=== PATIENT | female | born 1945 | race Caucasian/White ===

== ENCOUNTER 2018-01-29 16:37 | Emergency (ER) | payer MEDICARE, MEDICAID ==
[~2018-01-29] VITALS: Ht 160 cm; Wt 74.4 kg
[2018-01-29] MEDS ORDERED: Morphine Sulfate 4mg/ml Inj IVP ONE (17:15)
--- NOTE | 2018-01-29 17:18 | Emergency Room Report ---
History of Present Illness General Chief Complaint: Pain Source: Patient Present Illness HPI 72 yo female patient presents to ER for kidney stones. Reports CT done five days ago showing kidney stones; does not have copy of report; reports 2mm stone found at that time. Patient complains of worsening of pain since that time. Reports taking medication at home for pain without relief of symptoms. Complains of flank pain and nausea, denies vomiting. Reports hx of kidney stones twice before int he past. Reports they were "broken up" in hospital. Denies dysuria, hematuria. Denies fever, chest pain, SOB. Allergies: Coded Allergies: No Known Allergies (Unverified , 01/29/18) Patient History Past Medical History: see triage record Reviewed Nursing Documentation: PMH: Agreed; PSxH: Agreed Nursing Documentation-PMH Past Medical History: No History, Except For Hx Hypertension: Yes Review of Systems All Other Systems: negative except mentioned in HPI Physical Exam Vital Signs Date Time Temp Pulse Resp B/P (MAP) Pulse Ox O2 Delivery O2 Flow Rate FiO2 01/29/18 16:41 98.0 65 18 170/65 97 Room Air 98.1 Sp02 EP Interpretation: reviewed, normal General Appearance: well appearing, alert, GCS 15, non-toxic, mild distress Head: normocephalic, atraumatic Eyes: bilateral eye normal inspection, bilateral eye PERRL ENT: hearing grossly normal, normal pharynx, no angioedema, normal voice, uvula midline, moist mucus membranes Neck: full range of motion Respiratory: lungs clear, normal breath sounds, no rhonchi, no respiratory distress, no accessory muscle use, no wheezing, speaking full sentences Cardiovascular #1: regular rate, rhythm, no edema Gastrointestinal: soft, no mass, non-distended, no guarding, no rebound, tenderness Genitourinary: no CVA tenderness Musculoskeletal: back normal, digits/nails normal, gait/station normal, normal range of motion, non-tender Neurologic: alert, oriented x3, responsive, motor strength/tone normal, sensory intact Psychiatric: mood/affect normal Skin: no rash Lymphatic: no adenopathy Medical Decision Making PA Attestation Dr. Torres is my supervising physician with whom patient management has been discussed with. Diagnostic Impression: Primary Impression: Nephrolithiasis Additional Impressions: Acute kidney injury Urinary tract infection ER Course Pt. presents to the ED c/o kidney stones. Ddx considered but are not limited to UTI, cholelithiasis, cholecystitis, pancreatitis, appendicitis, diverticulitis. Begin abdominal pain workup. Provided patient with pain medication. Vital signs: are WNL, pt. is afebrile CURES reports shows no prescriptions filled. ORDERS: CBC, CMP, Lipase, UA, Urine , CT abdomen pelvis, Zofran, and pain medication. ER COURSE: Labs unremarkable, no elevation in WBC, LFTs, or lipase. BUN and creatinine elevated, consistent with acute kidney injury caused by nephrolithiasis. Urine negative UA equivocal for UTI. Patient reports currently being treated for UTI by primary care provider, has 2 days left of ciprofloxacin. Informed patient to continue taking medication provided by PCP, will provide single dose of Cipro in ER. Will not discharge home with abx. Patient reports relief of pain symptoms with medication. 0610PM patient resting comfortably, sleeping, in no acute distress. CT results shows 4mm calculus in kidney. Informed patient stone is non- obstructive and she is likely to pass it on her own, more likely to cause obstruction if >5mm. Perinephric stranding consistent with UTI. No appendicitis, diverticulitis, or SBO. Discuss results with patient. Copy of results provided to patient IV fluids provided to patient. Instructed patient to drink fluids to aid in passage of kidney stones. Consult with Dr. Torres, reports agreement with diagnosis, treatment, and plan. Patient is stable to discharge home. Patient reports she is ready for discharge home. Will be driven home by . Requesting Eighty Four pain medication. Will provide 5 pills to patient until able to followup with primary care provider and discuss referral to specialist. Dr. Torres agrees. DISCHARGE: Rx provided for Eighty Four. Take Tylenol for pain following completion of medication. Followup with primary care provider for further treatment for pain symptoms. Declines Tylenol rx. At this time pt. is stable for d/c to home. Patient resting comfortably, in no acute distress, nontoxic appearing, talking without difficulty, smiling and laughing. Rx provided to patient. Patient to take medications as instructed Will provide with patient care instructions and any necessary prescriptions. Care plan and follow-up instructions provided. Patient instructed to follow-up with primary care provider in 3 - 5 days. Patient questions asked and answered. Patient reports understanding and agreement to treatment plan. ER precautions given. Patient instructed to return to ER immediately for any new or worsening of symptoms including but not limited to increasing SOB, persistent fever, worsening of pain symptoms, intractable vomiting, blood in stool, urine, and/or emesis. Labs Test 01/29/18 17:20 White Blood Count 10.4 K/UL (4.8-10.8) Red Blood Count 4.61 M/UL (4.20-5.40) Hemoglobin 14.7 G/DL (12.0-16.0) Hematocrit 42.0 % (37.0-47.0) Mean Corpuscular Volume 91 FL (80-99) Mean Corpuscular Hemoglobin 31.8 PG (27.0-31.0) Mean Corpuscular Hemoglobin Concent 34.9 G/DL (32.0-36.0) Red Cell Distribution Width 12.2 % (11.6-14.8) Platelet Count 115 K/UL (150-450) Mean Platelet Volume 9.5 FL (6.5-10.1) Neutrophils (%) (Auto) % (45.0-75.0) Lymphocytes (%) (Auto) % (20.0-45.0) Monocytes (%) (Auto) % (1.0-10.0) Eosinophils (%) (Auto) % (0.0-3.0) Basophils (%) (Auto) % (0.0-2.0) Urine Color Pale yellow Urine Appearance Slightly cloudy Urine pH 7 (4.5-8.0) Urine Specific [place] 1.010 (1.005-1.035) Urine Protein 2+ (NEGATIVE) Urine Glucose (UA) Negative (NEGATIVE) Urine Ketones 1+ (NEGATIVE) Urine Occult Blood 5+ (NEGATIVE) Urine Nitrite Negative (NEGATIVE) Urine Bilirubin Negative (NEGATIVE) Urine Urobilinogen 1 MG/DL (0.0-1.0) Urine Leukocyte Esterase 2+ (NEGATIVE) Urine RBC 20-30 /HPF (0 - 2) Urine WBC 2-4 /HPF (0 - 2) Urine Squamous Epithelial Cells Few /LPF (NONE/OCC) Urine Bacteria Few /HPF (NONE) Urine HCG, Qualitative Negative (NEGATIVE) Sodium Level 137 MMOL/L (136-145) Potassium Level 4.5 MMOL/L (3.5-5.1) Chloride Level 103 MMOL/L (98-107) Carbon Dioxide Level 26 MMOL/L (21-32) Anion Gap 8 mmol/L (5-15) Blood Urea Nitrogen 40 mg/dL (7-18) Creatinine 2.0 MG/DL (0.55-1.30) Estimat Glomerular Filtration Rate 24.6 mL/min (>60) Glucose Level 121 MG/DL (74-106) Calcium Level 9.6 MG/DL (8.5-10.1) Total Bilirubin 0.5 MG/DL (0.2-1.0) Aspartate Amino Transf (AST/SGOT) 27 U/L (15-37) Alanine Aminotransferase (ALT/SGPT) 34 U/L (12-78) Alkaline Phosphatase 97 U/L (46-116) Total Protein 6.7 G/DL (6.4-8.2) Albumin 3.8 G/DL (3.4-5.0) Globulin 2.9 g/dL Albumin/Globulin Ratio 1.3 (1.0-2.7) Lipase 161 U/L (73-393) CT/MRI/US Diagnostic Results CT/MRI/US Diagnostic Results : Imaging Test Ordered: CT Abdomen pelvis Impression Left proximal ureter 4 mm calculus with associated hydronephrosis. Left perinephric stranding, cannot exclude infection/inflammation. Right nephrolithiasis. Bilateral adrenal thickening, followup per final report. No appendicitis, SBO, or diverticulitis. Moderate colonic stool. Last Vital Signs Date Time Temp Pulse Resp B/P (MAP) Pulse Ox O2 Delivery O2 Flow Rate FiO2 01/29/18 16:41 98.0 65 18 170/65 97 Room Air 98.1 Disposition: HOME, SELF-CARE Condition: Stable Scripts Hydrocodone Bit/Acetaminophen 5-325* (NORCO 5-325*) 1 Each Tablet 1 TAB ORAL Q6H PRN for For Pain, #5 TAB 0 Refills Prov: Kirk Corado 01/29/18 Patient Instructions: Acute Kidney Injury, Kidney Stones, [id number], Urinary Tract Infection, [id number] Additional Instructions: Followup with primary care provider in 3 -5 days. Continue to take Cipro for UTI. Take medications as directed. Patient questions asked and answered. ER precautions given, patient instructed to return to ER immediately for any new or worsening of symptoms. Kirk Corado Jan 29, 2018 17:17
[2018-01-29] MEDS ORDERED: Ketorolac 30mg Inj IV ONE (17:30)
[2018-01-29 17:44] LABS: BILIRUBIN, URINE NEGATIVE (NEGATIVE); COLOR,URINE PALE YELLOW; GLUCOSE, URINE (UA) NEGATIVE (NEGATIVE); KETONES,URINE 1+ (NEGATIVE); LEUKOCYTE ESTERASE ,URINE 2+ (NEGATIVE); NITRITE,URINE NEGATIVE (NEGATIVE); PH,URINE 7 (4.5-8.0); PROTEIN,URINE 2+ (NEGATIVE); UROBILINOGEN,URINE 1 MG/DL (0.0-1.0)
[2018-01-29 17:51] LABS: APPEARANCE,URINE SLIGHTLY CLOUDY
[2018-01-29 17:56] LABS: HEMOGLOBIN 14.7 G/DL (12.0-16.0); MEAN CORPUSCULAR VOLUME 91 FL (80-99); PLATELET COUNT 115 K/UL (150-450); RED BLOOD COUNT 4.61 M/UL (4.20-5.40); RED CELL DISTRIBUTION WIDTH 12.2 % (11.6-14.8); WHITE BLOOD COUNT 10.4 K/UL (4.8-10.8)
[2018-01-29 18:06] LABS: ANION GAP 8 mmol/L (5-15); BLOOD UREA NITROGEN 40 mg/dL (7-18); CALCIUM 9.6 MG/DL (8.5-10.1); CARBON DIOXIDE 26 MMOL/L (21-32); CHLORIDE 103 MMOL/L (98-107); POTASSIUM 4.5 MMOL/L (3.5-5.1); SODIUM 137 MMOL/L (136-145)
[2018-01-29 18:11] LABS: ALANINE AMINOTRANSFERASE 34 U/L (12-78); ALBUMIN 3.8 G/DL (3.4-5.0); ALBUMIN/GLOBULIN RATIO 1.3 (1.0-2.7); ALKALINE PHOSPHATASE 97 U/L (46-116); ASPARTATE AMINO TRANSFERASE 27 U/L (15-37); BILIRUBIN,TOTAL 0.5 MG/DL (0.2-1.0)
[2018-01-29] MEDS ORDERED: Ciprofloxacin 500mg tab ORAL ONE (18:45)
[2018-01-29 18:52] VITALS: BP 143/60
[2018-01-29] MEDS ORDERED: NORCO 5-325 TA1 EACH ORAL (19:54)
[2018-01-29 19:58] VITALS: BP 143/60
--- NOTE | 2018-01-30 08:51 | Diagnostic Imaging Report ---
Indication: Abdominal pain Technique: Spiral acquisitions obtained through the abdomen and pelvis. No oral contrast utilized, per emergency room physician request No IV contrast utilized, per referring physician request.. Multiplanar reconstructions were generated. Total dose length product 802.63 mGycm. CTDIvol(s) 16.38 mGy. Dose reduction achieved using automated exposure control Comparison: None Findings: There is a 6 x 4 mm calculus in the proximal left ureter just beyond the ureteropelvic junction. There is results are mild to moderate left hydronephrosis and considerable perinephric fat stranding, as well as enlargement of the left kidney. No intrarenal calculi are demonstrated. Lack of IV contrast limits assessment of the renal parenchyma. There is a 1.5 cm cyst in the upper pole of the left kidney. The right kidney is markedly atrophic. It demonstrates multiple cysts. It also demonstrates a calculus in the lower pole collecting system which is nonobstructive. No right hydronephrosis or right ureteral calculi demonstrated. Lack of IV contrast limits assessment of the other solid organs. The gallbladder is surgically absent. The bile ducts are unremarkable. The liver, pancreas, spleen are unremarkable. The adrenals are bulky bilaterally. No retroperitoneal or mesenteric mass or adenopathy. A densely calcified 3 cm mass is seen deep in the posterior pelvis. No other pelvic mass or adenopathy. Uterus contains a few calcifications. The appendix is normal. No evidence of diverticulosis or diverticulitis. No small bowel distention. No free or loculated intraperitoneal air or fluid is evident. Distal esophagus, stomach, duodenum are unremarkable. There are extensive degenerative changes of the thoracic and lumbar spine. The included lung bases are clear. Impression: Positive for obstructive 6 x 4 mm proximal left ureteral calculus. This results in [id number] left hydronephrosis and considerable perinephric fat stranding Right nephrolithiasis, nonobstructive. Atrophic right kidney with cysts. Bilateral adrenal hypertrophy 3 cm calcification in the posterior pelvis, probably postinflammatory Degenerative spondylosis This agrees with the preliminary interpretation provided overnight by [facility]. The CT scanner at [facility] is accredited by the [employer] and the scans are performed using protocols designed to limit radiation exposure to as low as reasonably achievable to attain images of sufficient resolution adequate for diagnostic evaluation.
== END 2018-01-29 20:06 | disposition home or self-care (01) ==
LOC: EMR 17:25
DX: N13.2 Hydronephrosis with renal and ureteral calculous obstruction (principal); N17.9 Acute kidney failure, unspecified; N39.0 Urinary tract infection, site not specified; I10 Essential (primary) hypertension; E27.8 Other specified disorders of adrenal gland
CPT/HCPCS: 36415; 74176; 80053; 81003; 81025; 83690; 85025; 96374; 96375; 99284; J1885; J2270; J2405

== ENCOUNTER → 2021-01-20 | Day surgery (SDC) | payer MEDICARE, OTHER ==
[~2021-01-20] VITALS: Ht 162.6 cm; Wt 70.8 kg
[2021-01-20] VITALS (10 sets, daily range): BP systolic 121–145; BP diastolic 55–78
[~2021-01-20] MED LIST: ASPIRIN81 MG ORAL; Bupivacaine 0.5% Inj 30 ml vial INJ ONE; FOLIC ACID1 MG ORAL; HYZAAR 100-12.1 EACH ORAL; LR 1000ml 1,000 ML IVLG SCH; Lidocaine 1% MPF 10mg/ml 5ml ONE; NORCO 5-325 TA1 EACH ORAL; NS Irrig 1000ml IRRIG ONE; TYLENOL EXTRA500 MG ORAL; VITAMIN D325 MC1 PO; fentaNYL 100 mcg/2 mL IV ONE; fentaNYL 100 mcg/2 mL IV PRN
--- NOTE | 2021-01-20 07:25 | Anethesia Preoperative Eval ---
Anesthesia Pre-op PMH/ROS General Date of Evaluation: Jan 20, 2021 Time of Evaluation: 07:21 Anesthesiologist: Roel ASA Score: ASA 2 Mallampati Score Class I : Soft palate, uvula, fauces, pillars visible Class II: Soft palate, uvula, fauces visible Class III: Soft palate, base of uvula visible Class IV: Only hard plate visible Mallampati Classification: Class II Surgeon: George Diagnosis: R foot hamertoe Surgical Procedure: Hamertoe correction Anesthesia History: none Family History: no anesthesia problems Allergies: Coded Allergies: No Known Allergies (Unverified , 01/20/21) Medications: see eMAR Patient NPO?: Yes Past Medical History Cardiovascular: Reports: HTN; Denies: CAD, RI, valve dz, arrhythmia, other Pulmonary: Denies: asthma, COPD, CARLOS, other Gastrointestinal/Genitourinary: Reports: GERD; Denies: CRI, ESRD, other Neurologic/Psychiatric: Reports: depression/anxiety; Denies: dementia, CVA, TIA, other Endocrine: Reports: hypothyroidism; Denies: DM, steroids, other HEENT: Reports: cataract (L) - s/p x; Denies: cataract (R), glaucoma, [place] (L), [place] (R), other Hematology/Immune: Reports: anemia - mild; Denies: DVT, bleeding disorder, other Musculoskeletal/Integumentary: Reports: OA; Denies: RA, DJD, DDD, edema, other PMH Narrative: above PSxH Narrative: se H&P Anesthesia Pre-op Phys. Exam Physician Exam Last Vital Signs Date Time Temp Pulse Resp B/P (MAP) Pulse Ox O2 Delivery O2 Flow Rate FiO2 01/20/21 06:32 Room Air 01/20/21 06:31 97.0 59 18 145/65 100 Constitutional: NAD Neurologic: CN 2-12 intact Cardiovascular: RRR, no M/R/G Respiratory: CTA Gastrointestinal: S/NT/ND Airway Exam Mallampati Score: Class II MO: limited Neck: stiff ROM: limited Teeth: missing Dentures: no upper, no lower Anesthesia Pre-op A/P Labs see chart Studies Pre-op Studies: EKG - S Risk Assessment & Plan Assessment: ASA 2 Plan: MAC Status Change Before Surgery: No Pre-Antibiotics Drug: Ancef 1gr Given Within 1 Hr of Incision: Yes Time Given: 08:15 Doc Sevilla MD Jan 20, 2021 07:24
--- NOTE | 2021-01-20 07:42 | Pre-Procedure Note/Attestation ---
Pre-Procedure Note/Attestation Complete Prior to Procedure Planned Procedure: right Procedure Narrative: Hammertoe correction fourth right digit Indications for Procedure Pre-Operative Diagnosis: Hammertoe deformity fourth right digit Attestation I attest that I discussed the nature of the procedure; its benefits; risks and complications; and alternatives (and the risks and benefits of such alternatives), prior to the procedure, with the patient (or the patient's legal internet sales representative). I attest that, if there was a reasonable possibility of needing a blood transfusion, the patient (or the patient's legal internet sales representative) was given the [facility] standardized written summary, pursuant to the Live Richard Blood Safety Act ([place] Health and Safety Code # 1645, as amended). I attest that I re-evaluated the patient just prior to the surgery and that there has been no change in the patient's H&P, except as documented below: Sixto Vazquez DPM Jan 20, 2021 07:42
--- NOTE | 2021-01-20 08:18 | Brief Operative Note ---
Immediate Post Operative Note Operative Note Pre-op Diagnosis: Hammertoe deformity fourth right digit Procedure: Hammertoe correction fourth right digit Post-op Diagnosis: same as pre-op Surgeon: George Anesthesiologist: Roel Anesthesia: MAC Specimen: yes Complications: none Condition: stable Fluids: 500 Estimated Blood Loss: none Drains: none Implant(s) used?: No Sixto Vazquez DPM Jan 20, 2021 08:18
--- NOTE | 2021-01-20 08:26 | Immediate Post-Op Evaluation ---
Immediate Post-Op Evalulation Immediate Post-Op Evalulation Procedure: R 4-th hammertoe correction Date of Evaluation: Jan 20, 2021 Time of Evaluation: 08:25 IV Fluids: 500 Blood Products: none Estimated Blood Loss: min Urinary Output: none Blood Pressure Systolic: 142 Blood Pressure Diastolic: 58 Pulse Rate: 54 Respiratory Rate: 18 O2 Sat by Pulse Oximetry: 99 Temperature (Fahrenheit): 97.6 Pain Score (1-10): 1 Nausea: No Vomiting: No Complications none Patient Status: awake, patent, none Hydration Status: adequate Doc Sevilla MD Jan 20, 2021 08:26
--- NOTE | 2021-01-20 09:22 | 48 Hour Post Anesthesia Eval ---
Post Anesthesia Evaluation Procedure: R 4-th hammertoe correction Date of Evaluation: Jan 20, 2021 Time of Evaluation: 09:20 Blood Pressure Systolic: 136 0: 78 Pulse Rate: 52 Respiratory Rate: 20 Temperature (Fahrenheit): 97.6 O2 Sat by Pulse Oximetry: 98 Airway: patent Nausea: No Vomiting: No Pain Intensity: 1 Hydration Status: adequate Cardiopulmonary Status: stable Mental Status/LOC: patient returned to baseline Follow-up Care/Observations: n/a Post-Anesthesia Complications: none Follow-up care needed: ready to discharge Doc Sevilla MD Jan 20, 2021 09:21
--- NOTE | 2021-01-20 12:29 | Operative Note - Dictated ---
DATE OF OPERATION: 01/20/2021 SURGEON: Sixto Vazquez DPM. ANESTHESIOLOGIST: Doc Sevilla MD. ANESTHESIA: Local standby. PREOPERATIVE DIAGNOSIS: Hammertoe deformity, fourth right digit. POSTOPERATIVE DIAGNOSIS: Hammertoe deformity, fourth right digit. PROCEDURE PERFORMED: Arthroplasty, fourth right proximal interphalangeal joint. DESCRIPTION OF THE OPERATION: The patient was brought to the operating room and was placed on the operating room table in the supine position. IV sedation was administered by the anesthesiologist, local anesthesia consisting of 0.5% Marcaine plain total of 7 mL was administered to the fourth right digit. An ankle tourniquet was applied to the right lower extremity. The foot was prepped and draped in the usual sterile manner. An Esmarch bandage was utilized to exsanguinate the blood and the right ankle tourniquet was inflated to 250 mmHg. Attention was then directed to the fourth right digit where an approximately 3 to 4 cm skin incision was centered over the proximal interphalangeal joint. The incision was deepened utilizing sharp and blunt dissection with care being taken to cauterize and ligate all bleeders. At the level of the joint, a transverse tenotomy was performed. The extensor tendon was reflected proximally and the head of the proximal phalanx was exposed. The collateral ligaments were severed. Utilizing a sagittal saw, the head of the proximal phalanx was resected in toto. The remaining bone was rasped smooth. The wound was copiously flushed utilizing sterile saline. The extensor tendon was then reapproximated utilizing 4-0 Vicryl in a simple interrupted type stitch. The skin was then reapproximated utilizing 4-0 nylon in a simple interrupted type stitch. The wound was dressed utilizing an Adaptic 4 x 4 gauze and 3 inch Kandis. The right ankle tourniquet was deflated and vascular supply was noted to all digits right foot. Sixto Vazquez D.P.M. DR: GAURAV JOB#: [id number] CC:
--- NOTE | 2021-01-20 12:44 | History and Physical Report ---
DATE OF ADMISSION: 01/20/2021 PODIATRIC HISTORY AND PHYSICAL HISTORY OF PRESENT ILLNESS: This is a 75-year-old white female that is admitted today for an outpatient correction of her fourth right hammertoe deformity. The patient has been under my care for the past 3 years. She had developed a painful corn over the dorsal aspect of her fourth right digit and numerous debridement of the skin lesion along with shoe-gear modification and padding failed to alleviate her symptoms. The patient was consulted on surgical correction. PAST MEDICAL HISTORY: Remarkable for hypertension, kidney stones, osteoporosis, DJD, GERD, and back pain. She has a history of spinal stenosis post laminectomy. MEDICATIONS: Norvasc, Singulair, Celebrex, aspirin, Crestor, Lyrica, Lidoderm, Hyzaar, Tradjenta, and rosuvastatin. ALLERGIES: No known drug allergies. PODIATRIC PHYSICAL EXAMINATION: VASCULAR STATUS: The dorsalis pedis and posterior tibial arteries are equally palpable measuring 2/4 bilaterally. Capillary filling time is less than 4 seconds to all digits bilaterally. Homans sign is negative. Mild varicosities are noted bilateral lower extremity. NEUROLOGICAL: Reveals intact reflexes Achilles and patellar measuring 2/4 bilaterally. Sensation, proprioception and vibration are all intact bilateral lower extremity. Babinski is negative. Clonus is absent. MUSCULOSKELETAL: Reveals nonreducible hammertoe deformities of digits 2 through 5 bilaterally. Mild bunion deformities are noted bilaterally. Decreased range of motion of the forefoot and midfoot is noted bilaterally. No crepitation is present. DERMATOLOGICAL: Reveals a keratoma overlying the dorsal aspect of the fourth right proximal interphalangeal joint. No other skin lesions, scars or ulcerations are present bilaterally. All nails are present and healthy bilaterally. ASSESSMENT: Hammertoe deformity, fourth right digit with painful keratoma. PLAN: The patient is admitted today for an outpatient correction of her fourth right hammertoe deformity. Risks, complications and alternatives were discussed with the patient. Postoperative instructions were given to the patient. Postoperative medication was dispensed to the patient. The patient elected to proceed with surgery. Sixto Vazquez D.P.M. DR: CATHY/KASSIE JOB#: [id number] CC: CHANDLER
--- NOTE | 2021-01-20 13:51 | Diagnostic Imaging Report ---
EXAM: X-RAY XRAY Foot Complete R CLINICAL HISTORY: Foot pain. COMPARISON: None FINDINGS: Total of 3 views of the right foot were obtained. There is mild diffuse osteopenia. The toes are held in slight extension. No acute bony abnormality noted. There is no fracture, bony lesions or erosions. There is a small calcaneal spur. Joint spaces appear anatomic. Surrounding soft tissue is normal. IMPRESSION: NO ACUTE BONY ABNORMALITY.
== END | disposition home or self-care (01) ==
LOC: SUR 06:08
DX: M20.41 Other hammer toe(s) (acquired), right foot (principal); I10 Essential (primary) hypertension; K21.9 Gastro-esophageal reflux disease without esophagitis; M81.0 Age-related osteoporosis without current pathological fracture; Z79.82 Long term (current) use of aspirin; Z79.899 Other long term (current) drug therapy; M21.612 Bunion of left foot; M21.611 Bunion of right foot; M20.42 Other hammer toe(s) (acquired), left foot; L57.0 Actinic keratosis; E03.9 Hypothyroidism, unspecified; M19.90 Unspecified osteoarthritis, unspecified site; D64.9 Anemia, unspecified
CPT/HCPCS: 28285; 73630; 94003; J0690; J1100; J2704; J3010; J3490; U0004; 94150